=== PATIENT | female | born 1965 | race Caucasian/White ===

== ENCOUNTER 2025-05-17 19:31 | Inpatient (IN) | payer OTHER ==
[~2025-05-17] VITALS: Ht 175.3 cm; Wt 100.7 kg
[2025-05-17 20:04] LABS: COVID AG,FIA SOURCE NASAL SWAB
[2025-05-17 20:27] LABS: SARS-COV2 (COVID) ANTIGEN,FIA Negative (Negative)
[2025-05-17 20:38] LABS: PLATELET COUNT (AUTO) 274 K/uL (150-450); RED BLOOD CELL COUNT(AUTO) 4.63 MIL/uL (4.00-5.20); RED CELL DISTRIBUTION WIDTH 13.7 % (11.5-14.5); WHITE BLOOD COUNT (AUTO) 8.8 K/uL (4.5-11.0)
[2025-05-17 20:51] LABS: CALCIUM, TOTAL 9.7 mg/dL (8.8-10.5); CREATININE 0.70 mg/dL (0.60-1.30); GLOMERULAR FILTR. RATE CALC > 60 mL/min (>60); GLUCOSE,RANDOM 129 mg/dL (70-110); SODIUM SERUM 141 mmol/L (136-145); UREA NITROGEN, BLOOD 16 mg/dL (7-18)
[2025-05-17 21:15] LABS: PH,URINE DRUG SCREEN 5.5 (5.0-8.0)
[2025-05-17 21:22] LABS: ALCOHOL, URINE DRUG SCREEN POSITIVE (NEGATIVE); AMPHET/METH SCREEN,URINE NEGATIVE (NEGATIVE); BARBITURATE SCREEN, URINE NEGATIVE (NEGATIVE); CANNABINOID SCREEN,URINE NEGATIVE (NEGATIVE); COCAINE SCREEN,URINE NEGATIVE (NEGATIVE); METHADONE SCREEN, URINE NEGATIVE (NEGATIVE)
[2025-05-17] MEDS: VENLAFAXINE HCL 150 MG ER CAPSULE PO ONE (23:08)
[2025-05-17 23:11] LABS: ALCOHOL, BLOOD (SERUM) 124 mg/dL (0-10)
[2025-05-18] MEDS ORDERED: ZOLPIDEM TARTRATE 10 MG TABLET PO PRN (02:45)
[2025-05-18 03:35] VITALS: O2SAT 98
[2025-05-18 04:39] VITALS: BP 141/78; PULSE 78; RESP 17; TEMP 97.5; O2SAT 98
[2025-05-18] MEDS ORDERED: MAGNESIUM HYDROXIDE SUSPENSION 30 ML UDCUP PO PRN (05:30)
[2025-05-18] MEDS ORDERED: PETROLATUM,WHITE 28 GM JELLY TP PRN (05:30)
[2025-05-18] MEDS ORDERED: BENZOCAINE/MENTHOL [CEPACOL] LOZENGE PO PRN (05:30)
[2025-05-18] MEDS ORDERED: IBUPROFEN 600 MG TABLET PO PRN (05:30)
[2025-05-18] MEDS ORDERED: ONDANSETRON 4 MG TABLET PO PRN (05:30)
[2025-05-18] MEDS ORDERED: ALBUTEROL SULFATE HFA 90 MCG/PUFF 8 GM INHALER IH PRN (05:30)
[2025-05-18] MEDS ORDERED: BACITRACIN 28 GM OINTMENT TP PRN (05:30)
[2025-05-18] MEDS ORDERED: MAG HYDROX/ALUMINUM HYD/SIMETH ES 30 ML SUSPENSION UDCUP PO PRN (05:30)
[2025-05-18] MEDS ORDERED: OMEPRAZOLE 20 MG CAPSULE PO PRN (05:30)
[2025-05-18] MEDS ORDERED: DOCUSATE SODIUM 100 MG CAPSULE PO PRN (05:30)
[2025-05-18] MEDS ORDERED: ACETAMINOPHEN 325 MG TABLET PO PRN (05:30)
[2025-05-18] MEDS ORDERED: LOPERAMIDE HCL 2 MG CAPSULE PO PRN (05:30)
[2025-05-18] MEDS ORDERED: PNEUMOCOCCAL VACCINE POLYVALENT 0.5 ML SYRINGE [PPSV23] IM. ONE (06:15)
[2025-05-18 08:40] VITALS: BP 121/76; PULSE 80; RESP 16; TEMP 97.9; O2SAT 97
[2025-05-18] MEDS ORDERED: BUSP10TA23 PO (19:22)
[2025-05-18] MEDS ORDERED: VENL-68 PO (19:24)
[2025-05-18] MEDS: VENLAFAXINE HCL 150 MG ER CAPSULE PO SCH (20:20)
[2025-05-18 20:28] VITALS: BP 123/74; PULSE 82; RESP 18; TEMP 97.5; O2SAT 99
[2025-05-19 08:24] VITALS: BP 120/61; PULSE 70; RESP 16; TEMP 98.3; O2SAT 97
== END 2025-05-19 11:45 | disposition home or self-care (01) | DRG 881 ==
LOC: EMS 19:31 → B2S 05-18 03:34
PROVIDERS: ADMIT Psychiatry & Neurology Psychiatry; ATTEND Psychiatry & Neurology Psychiatry
DX: F32.9 Major depressive disorder, single episode, unspecified (principal); R45.851 Suicidal ideations; E66.9 Obesity, unspecified; F10.10 Alcohol abuse, uncomplicated; I10 Essential (primary) hypertension; J45.909 Unspecified asthma, uncomplicated; Z20.822 Contact with and (suspected) exposure to COVID-19; F41.9 Anxiety disorder, unspecified; G47.00 Insomnia, unspecified; K59.00 Constipation, unspecified; Y90.6 Blood alcohol level of 120-199 mg/100 ml; Z79.899 Other long term (current) drug therapy; Z68.32 Body mass index [BMI] 32.0-32.9, adult; Z98.84 Bariatric surgery status
CPT/HCPCS: 80048; 80307; 85025; G0480; G0481